=== PATIENT | male | born 1965 | race Caucasian/White ===

== ENCOUNTER → 2016-03-28 11:16 | Outpatient (CLI) | payer MEDICARE ==
[~2016-03-28 11:16] MED LIST: AMBIEN10 MG PO; LIORESAL 10 MG10 MG PO; LYRICA100 MG PO; LYRICA75 MG PO; PERCOCET 10/3251 TA1 PO; PRILOSEC20 MG PO; TRIPLE ANTIB28.35 GM TP
== END | disposition home or self-care (01) ==
LOC: D.MRI 11:16
DX: M50.80 Other cervical disc disorders, unspecified cervical region (principal)

== ENCOUNTER → 2016-05-18 14:30 | Outpatient (CLI) | payer MEDICARE | END | disposition home or self-care (01) | LOC: D.MRI 13:00 | DX: D49.7 Neoplasm of unspecified behavior of endocrine glands and other parts of nervous system (principal); M54.16 Radiculopathy, lumbar region ==

== ENCOUNTER 2016-06-02 17:56 | Emergency (ER) | payer MEDICARE ==
[2016-06-02 19:01] LABS: BASOPHILS 0.4 % (0.0-2.0); EOSINOPHILS 4.1 % (0-7); HEMATOCRIT 46.4 % (42.0-54.0); HEMOGLOBIN 15.5 g/dL (13.5-17.5); IMMATURE GRANULOCYTES 0.1 % (0-5); LYMPHOCYTES 23.1 % (15-50); MCH 31.4 pg (26.0-34.0); MCHC 33.4 g/dL (31.0-37.0); MCV 94.1 fL (80.0-100.0); MEAN PLATELET VOLUME 12.5 fL (7.4-10.4); MONOCYTES 13.1 % (2-11); NEUTROPHILS 59.2 % (40-80); PLATELET COUNT 154 10x3/uL (130-400); RBC 4.93 10x6/uL (4.20-6.10); RDW 13.8 % (11.5-14.5); WBC 7.3 10x3/uL (4.8-10.8)
[2016-06-02 19:27] LABS: ALBUMIN 3.8 g/dL (3.4-5.0); ALKALINE PHOSPHATASE 88 U/L (46-116); ALT (SGPT) 37 U/L (10-68); BILIRUBIN - TOTAL 0.51 mg/dL (0.2-1.3); CALC OSMOLALITY 278 mosm/kg (275-300); CALCIUM 9.3 mg/dL (8.5-10.1); CARBON DIOXIDE 23.2 mmol/L (21.0-32.0); CHLORIDE - SERUM 103 mmol/L (98-107); CREATININE - SERUM 1.2 mg/dL (0.6-1.3); GLUCOSE 100 mg/dL (74-106); POTASSIUM - SERUM 4.2 mmol/L (3.5-5.1); PROTEIN - SERUM 7.9 g/dL (6.4-8.2); SODIUM 138 mmol/L (136-145); UREA NITROGEN 20 mg/dL (7-18); eGFR NON AFRICAN AMERICAN 68 mL/min (90-120)
[2016-06-02 19:32] LABS: CKMB 3.2 U/L (0.0-3.6); CREATINE KINASE 865 UL (21-232); TROPONIN-I < 0.017 ng/mL (0.000-0.060)
== END 2016-06-02 21:30 | disposition home or self-care (01) ==
LOC: D.ER 17:56
PROVIDERS: Family Medicine
DX: J20.9 Acute bronchitis, unspecified (principal); J45.909 Unspecified asthma, uncomplicated; R50.9 Fever, unspecified; F17.200 Nicotine dependence, unspecified, uncomplicated; I10 Essential (primary) hypertension; Z86.73 Personal history of transient ischemic attack (TIA), and cerebral infarction without residual deficits

== ENCOUNTER 2016-12-09 19:03 | Inpatient (IN) | payer MEDICARE ==
--- NOTE | ~2016-12-09 | HEMODYNAMI ---
PATIENT:CONSTANCE AVITIA MEDICAL RECORD: [id number] : 65 LOCATION:[facility] D.2127 ADMISSION DATE: 12/11/16 Generatedon:12/12/20168:34 Patient name: CONSTANCE AVITIA Patient #: [id number] SSN: : 1965 Date of study: 12/12/2016 Page: Of Hemodynamic Procedure Report Patient Data Patient Demographics Procedure consent was obtained First Name: CONSTANCE Gender: Male Last Name: SADI : 1965 [facility] Initial: JESICA Age: 51 year(s) Patient #: [id number] Race: Unknown Additional ID: [id number] Contact details Address: [address] [place] [address] rd State: [place] City: [facility] Zip code: [address] Past Medical History Allergies Allergen Reaction Date Comments Reported Other allergy 12/12/2016 Sulfa and butterscotch lindsey Admission Admission Data Admission Date: 12/11/2016 Admission Time: 9:13 Room #: D.2127 Lab Results Lab Result Date: 12/12/2016 Lab Result Time: 0:00 Biochemistry Name Units Result Min Max BUN mg/dl 14 --(--*-)-- 7 18 Creatinine mg/dl 1.1 --(--*-)-- 0.6 1.3 CBC Name Units Result Min Max Hemoglobin g/dl 14.8 --(-*--)-- 13.5 17.5 Procedure Procedure Types Cath Procedure Diagnostic Procedure LHC LHC w/Coronaries Miscellaneous Procedures Procedure Description Procedure Date Procedure Date: 12/12/2016 Procedure Start Time: 8:15 Procedure End Time: 8:25 Procedure Staff Name Function Adeline Sosa RT Scrub Evie Hayes RN Nurse Dagoberto Dickson MD Performing Physician Angelia Dias RT Monitor Procedure Data Cath Procedure Fluoroscopy Diagnostic fluoroscopy Total fluoroscopy Time: 2.1 time: 2.1 min min Diagnostic fluoroscopy Total fluoroscopy dose: 471 dose: 471 mGy mGy Contrast Material Contrast Material Type Amount (ml) Isovue 300 56 Entry Location Entry Primary Successful Side Size Upsize Upsize Entry Closure Vincent ccessful Closure Location (Fr) 1 (Fr) 2 (Fr) Remarks Device Remarks Radial Right 6 Fr Mechanical artery Short Compression Estimated blood loss: 10 ml Diagnostic catheters Device Type Used For End Catheter Placement Terumo 5Fr Balbir 110cm Procedure catheter Procedure Complications No complications Procedure Medications Medication Administration Route Dosage Oxygen NC 2 l/min Lidocaine 2% added to field 20 Heparin Flush Bag added to field 2 bags (1000units/500ml NS) 0.9% NaCl I.V. 100 ml/hr Versed I.V. 1 mg Fentanyl I.V. 100 mcg Versed I.V. 1 mg Fentanyl I.V. 50 mcg Versed I.V. 1 mg Fentanyl I.V. 50 mcg Radial Cocktail I.A. 1 syringe (Verapomil 2mg/Nitro 400mcg/Heparin 1500units) Hemodynamics Rest HGB: 14.8 (g/dl) Heart Rate: 53 (bpm) Pressure Samples Time Site Value (mmHg) Purpose Heart Use Rate(bpm) 8:20 LV 127/-6,18 Snapshot 64 8:20 AO 104/72(86) Pullback 73 Gradients Valve Time Site Site 2 Mean SEP/DFP Peak To Heart Use 1 (mmHg) (sec/min) Peak Rate (mmHg) (bpm) Aortic 8:20 LV AO 15 17 73 104/72(86) Calculations Valve P-P Mean Valve Index Valve Source Name Gradient Area Flow (cm2) Aortic 15 15 Snapshots Pre Cath Intra NCS Post Cath Vital Signs Time Heart Resp SPO2 NIBP (mmHg) Rhythm Pain Status Sedation Rate (ipm) (%) Level (bpm) 8:05:33 52 25 98 130/89(98) SB 5 (11) , 10(A) Very distressing 8:09:47 54 16 95 129/79(90) SB 5 (11) , 10(A) Very distressing 8:13:59 52 16 94 133/86(98) SB 5 (11) , 10(A) Very distressing 8:18:13 55 17 93 137/84(95) SB 5 (11) , 10(A) Very distressing 8:22:31 59 22 95 108/66(80) SB 5 (11) , 10(A) Very distressing 8:27:24 59 12 95 126/75(106) SB 0 (11) , No 10(A) pain Medications Time Medication Route Dose Verified Delivered Reason Notes E ffectiveness by by 8:04:03 Oxygen NC 2 l/min Dagoberto Buffie used for Randolph Hayes RN procedure 8:04:09 Lidocaine 2% added 20ml Dagoberto Dagoberto for local to vial Randolph Dickson MD anesthetic field 8:04:15 Heparin Flush added 2 bags Dagoberto Dagoberto used for Bag to Randolph Dickson MD procedure (1000units/500ml field NS) 8:04:26 0.9% NaCl I.V. 100 Dagoberto Buffie Per ml/hr Randolph Hayes RN physician 8:13:31 Versed I.V. 1 mg Dagoberto Buffie for sedation Randolph Hayes RN 8:13:37 Fentanyl I.V. 100 mcg Dagoberto Buffie for sedation Randolph Hayes RN 8:16:08 Radial Cocktail I.A. 1 Dagoberto Dagoberto for (Verapomil syringe Randolph Dickson MD vasodilation 2mg/Nitro 400mcg/Hepari 8:17:11 Versed I.V. 1 mg Dagoberto Buffie for sedation Randolph Hayes RN 8:17:15 Fentanyl I.V. 50 mcg Dagoberto Buffie for sedation Randolph Hayes RN 8:22:27 Versed I.V. 1 mg Dagoberto Buffie for sedation Randolph Hayes RN 8:22:31 Fentanyl I.V. 50 mcg Dagoberto Buffie for sedation Randolph Hayes RN Procedure Log Time Note 7:40:27 Adeline Sosa RT(R) sent for patient. Start room use. 7:55:00 Procedure type changed to Cath procedure, Diagnostic procedure, LHC, LHC w/Coronaries, Miscellaneous Procedures 7:55:06 Diagnostic Cath Status : Elective 7:55:34 Time tracking: Regular hours 7:55:38 Plan of Care:Hemodynamics will remain stable., Cardiac rhythm will remain stable., Comfort level will be maintained., Respiratory function will remain adequate., Patient/ family verbilizes understanding of procedure., Procedure tolerated without complication., Recovers from procedure without complications.. 7:55:43 Patient received from Med II to [facility] 2 Alert and oriented. Tansferred to table in Supine position. 7:55:44 Correct patient and procedure confirmed by team. 7:55:44 Warm blankets applied, and fabi hugger turned on for patient comfort. 7:55:46 ECG and BP/O2 sat monitors applied to patient. 7:55:46 Signed procedure consent form obtained from patient. 8:04:03 Oxygen 2 l/min NC was administered by Evie Hayes RN; used for procedure; 8:04:09 Lidocaine 2% 20ml vial added to field was administered by Dagoberto Dickson MD; for local anesthetic; 8:04:15 Heparin Flush Bag (1000units/500ml NS) 2 bags added to field was administered by Dagoberto Dickson MD; used for procedure; 8:04:26 0.9% NaCl 100 ml/hr I.V. was administered by Evie Hayes RN; Per physician; 8:04:30 Vital chart was started 8:07:02 Rhythm: sinus rhythm 8:07:04 Full Disclosure recording started 8:07:07 Baseline sample Acquired. 8:07:14 H&P Date Dictated: 12/11/2016 Within 30 days and on chart.. 8:07:18 Family in patients room. 8:07:19 Patient NPO since Midnight. 8:07:43 Patient allergic to Other allergySulfa and butterscotch lindsey 8:07:46 Is the patient allergic to Iodine/contrast media? No. 8:07:48 Was the patient premedicated? Yes 8:07:49 Is patient on blood thinner?No 8:07:54 Patient diabetic? No. 8:07:59 Snore? Yes 8:08:00 Sleep apnea? Yes 8:08:08 Airway obstruction? Yes COPD 8:08:22 Dentures? Yes in tight 8:08:32 Patient pain scale 5/10 pressure. 8:08:40 IV patent on arrival in right forearm with 0.9% NaCl at O. 8:10:07 Lab results completed and on chart. 8:10:11 Right Radial & Right Groin area was prepped with chlora-prep and draped in sterile fashion 8:10:12 Sharps counted by scrub and verified by R.N. 8:10:12 Alarms reviewed by R. N. 8:10:13 Physician paged 8:10:14 Physician arrived 8:10:15 --------ALL STOP TIME OUT------ 8:10:16 Final Timeout: patient, procedure, and site verified with staff and physician. All members of the team are in agreement. 8:10:19 Right Radial & Right Groin site verified by team. 8:10:24 Sedation plan: IV Moderate Sedation Versed, Fentanyl 8:12:18 Lab Result : Hemoglobin 14.8 g/dl 8:12:18 Lab Result : Creatinine 1.1 mg/dl 8:12:18 Lab Result : BUN 14 mg/dl 8:13:31 Versed 1 mg I.V. was administered by Evie Hayes RN; for sedation; 8:13:37 Fentanyl 100 mcg I.V. was administered by Evie Hayes RN; for sedation; 8:15:07 Procedure started. 8:15:08 Use device set Radial Dx 8:15:09 Acist Syringe opened to sterile field. 8:15:10 Medline Cath Pack opened to sterile field. 8:15:11 St Faisal 260cm J .035 wire opened to sterile field. 8:15:11 Terumo 6Fr Slender Glidesheath opened to sterile field. 8:15:11 Bag Decanter opened to sterile field. 8:15:12 Acist Manifold opened to sterile field. 8:15:12 Acist Hand Control opened to sterile field. 8:15:13 MBrace Wrist Support opened to sterile field. 8:15:13 Tegaderm 4 x 4 opened to sterile field. 8:15:22 Local anesthetic to right radial artery with Lidocaine 2% by Dagoberto Dickson MD.INITIAL ACCESS ONLY 8:15:37 A 6 Fr Short sheath was inserted into the Right Radial artery 8:16:08 Radial Cocktail (Verapomil 2mg/Nitro 400mcg/Heparin 1500units) 1 syringe I.A. was administered by Dagoberto Dickson MD; for vasodilation; 8:16:56 Zero performed for pressure channel P1 8:17:11 Versed 1 mg I.V. was administered by Evie Hayes RN; for sedation; 8:17:15 Fentanyl 50 mcg I.V. was administered by Evie Hayes RN; for sedation; 8:19:11 A Terumo 5Fr Balbir 110cm catheter was advanced over the wire and used for Procedure. 8:19:43 LV angiography performed. 8:20:44 EF : 50 % 8:20:52 RCA angiography performed. 8:21:18 LCA angiography performed. 8:22:27 Versed 1 mg I.V. was administered by Evie Hayes RN; for sedation; 8:22:31 Fentanyl 50 mcg I.V. was administered by Evie Hayes RN; for sedation; 8:23:19 Catheter removed. 8:23:29 Terumo TR Band Standard opened to sterile field. 8:23:53 Sheath removed intact; hemostasis achieved with Mechanical Compression to the Right Radial artery. 8:23:56 Procedure ended.(Physican Out) 8:24:25 Fluoroscopy time 02.10 minutes. 8:24:31 Fluoroscopy dose: 471 mGy 8:24:31 Flurop Dose total: 471 8:24:35 Contrast amount:Isovue 300 56ml. 8:24:37 Sharps counted by scrub and verified by R.N. 8:24:39 TR band inflated with 10cc of air. 8:24:41 Insertion/operative site no bleeding no hematoma. 8:24:49 Post right radial artery:stable 8:24:51 Post Procedure Pulses reassessed and unchanged 8:25:12 Post procedure rhythm: unchanged. 8:25:15 Estimated blood loss: 10 ml 8:25:17 Post procedure instruction explained to patient.Patient verbalizes understanding. 8:25:32 Procedure Complication : No complications 8:25:36 Vital chart was stopped 8:25:38 See physician's report for complete and final results. 8:25:44 Report given to [facility]. 8:25:48 Patient transfered to [facility] with Bed. 8:25:50 Full Disclosure recording stopped 8:25:50 Procedure ended. 8:25:58 End room use (Document Last) Device Usage Item Name Manufacture Quantity Catalog Hospital Part Current Minimal Lot# / Number Charge Number Stock Stock Serial# Code Acist Acist 1 53490 275395 379463 045835 20 Syringe Medical Microstim Inc Medline Cardinal 1 [id number] 48993 938780 5 Cath Pack Health Bag Microtek 1 2001S 687818 62512 615695 5 [employer] Terumo 6Fr Terumo 1 [id number] 041696 575325 883135 [address] St Faisal 1 [id number] 553782 026337 113120 30 260cm J .035 wire Acist Hand Acist 1 68192 886212 763566 640980 5 Control Medical Systems Inc Acist Acist 1 76022 344469 089686 737224 5 Manifold Medical Systems Inc Tegaderm 4 3M 1 1626W 924339 918817 400640 5 x 4 MBrace Advanced 1 140-0250-00 278777 83538 343134 5 Wrist Vascular Support Dynamics Terumo 5Fr Terumo 1 84-1215 739569 143038 587552 5 Balbir 110cm catheter Terumo TR Terumo 1 [id number] 198858 606476 823163 40 Band Standard Signature Audit [place] Stage Time Signature Unsigned Intra-Procedure 12/12/2016 Adeline Sosa 8:34:01 AM RT(R) Signatures Monitor : Angelia Dias Signature : RT Date : Time : [facility] [address] [facility] [place] [address]
[2016-12-09 19:44] LABS: BASOPHILS 0.2 % (0-2); EOSINOPHILS 2.5 % (0-7); HEMATOCRIT 43.8 % (42.0-54.0); IMMATURE GRANULOCYTES 0.6 % (0-5); LYMPHOCYTES 31.5 % (15-50); MCH 32.4 pg (26.0-34.0); MCHC 34.2 g/dL (31.0-37.0); MCV 94.6 fL (80.0-100.0); MEAN PLATELET VOLUME 11.5 fL (7.4-10.4); MONOCYTES 7.7 % (2-11); NEUTROPHILS 57.5 % (40-80); PLATELET COUNT 143 10x3/uL (130-400); RBC 4.63 10x6/uL (4.20-6.10); RDW 13.8 % (11.5-14.5); WBC 9.5 10x3/uL (4.8-10.8)
[2016-12-09 19:56] LABS: ALBUMIN 3.3 g/dL (3.4-5.0); ALKALINE PHOSPHATASE 95 U/L (46-116); ALT (SGPT) 31 U/L (10-68); BILIRUBIN - TOTAL 0.26 mg/dL (0.2-1.3); CALC OSMOLALITY 275 mosm/kg (275-300); CALCIUM 8.6 mg/dL (8.5-10.1); CARBON DIOXIDE 25.7 mmol/L (21.0-32.0); CHLORIDE - SERUM 104 mmol/L (98-107); CREATININE - SERUM 1.2 mg/dL (0.6-1.3); GLUCOSE 87 mg/dL (74-106); POTASSIUM - SERUM 4.2 mmol/L (3.5-5.1); PROTEIN - SERUM 6.9 g/dL (6.4-8.2); SODIUM 138 mmol/L (136-145); UREA NITROGEN 16 mg/dL (7-18); eGFR NON AFRICAN AMERICAN 68 mL/min (90-120)
[2016-12-09 20:08] LABS: CHOL - HDL RATIO 4.4 ratio (2.3-4.9); CHOLESTEROL, TOTAL 200 mg/dL (0-200); CKMB 1.1 U/L (0.0-3.6); CREATINE KINASE 145 UL (21-232); HDL CHOLESTEROL 45 mg/dL (32-96); LDL CHOLESTEROL 140 mg/dL (0-100); LDL-HDL RATIO 3.1 ratio (1.5-3.5); TRIGLYCERIDE 77 mg/dL (30-200); TROPONIN-I < 0.017 ng/mL (0.000-0.060)
[2016-12-09] MEDS ORDERED: RESTORIL15 MG PO (23:31)
--- NOTE | 2016-12-09 23:35 | NUR ---
REC FROM ER VIA WC. ALERT AND ORIENTED X 4. AMBULATED WITH STEADY GAIT TO THE BED. DENIES CHEST PAIN. IV IN L FA 20G INTACT SL. HAS 02 AT 2L/NC. RR 20 EVEB U/L. NITRO PATCH ON L CHEST PLACED IN ER. REQUESTED A SANDWICH AND SODA. ORIENTED TO ROOM AND CALL LIGHT.
[2016-12-10 01:45] VITALS: BP 103/64; BMI 30.2
[2016-12-10 01:58] LABS: BASOPHILS 0.3 % (0-2); EOSINOPHILS 1.4 % (0-7); HEMATOCRIT 44.2 % (42.0-54.0); IMMATURE GRANULOCYTES 0.4 % (0-5); LYMPHOCYTES 15.7 % (15-50); MCH 32.3 pg (26.0-34.0); MCHC 33.9 g/dL (31.0-37.0); MCV 95.3 fL (80.0-100.0); MONOCYTES 3.8 % (2-11); NEUTROPHILS 78.4 % (40-80); PLATELET COUNT 130 10x3/uL (130-400); RBC 4.64 10x6/uL (4.20-6.10); RDW 13.8 % (11.5-14.5)
[2016-12-10 02:06] LABS: WBC 7.1 10x3/uL (4.8-10.8)
[2016-12-10 02:19] LABS: CALC OSMOLALITY 276 mosm/kg (275-300); CALCIUM 8.6 mg/dL (8.5-10.1); CARBON DIOXIDE 28.6 mmol/L (21.0-32.0); CHLORIDE - SERUM 104 mmol/L (98-107); CKMB 0.8 U/L (0.0-3.6); CREATINE KINASE 130 UL (21-232); CREATININE - SERUM 1.2 mg/dL (0.6-1.3); GLUCOSE 114 mg/dL (74-106); POTASSIUM - SERUM 4.5 mmol/L (3.5-5.1); SODIUM 137 mmol/L (136-145); TROPONIN-I < 0.017 ng/mL (0.000-0.060); UREA NITROGEN 17 mg/dL (7-18); eGFR NON AFRICAN AMERICAN 68 mL/min (90-120)
[2016-12-10] MEDS ORDERED: ALDACTONE50 MG PO (02:24)
[2016-12-10] MEDS ORDERED: METOPROLOL TART50 MG PO (02:25)
[2016-12-10] MEDS ORDERED: CELEXA20 MG PO (02:27)
[2016-12-10] MEDS ORDERED: LUNESTA2 M1 PO (02:28)
[2016-12-10] MEDS ORDERED: VISTARIL25 MG PO (02:29)
[2016-12-10] MEDS ORDERED: LYRICA200 MG PO (02:32)
[2016-12-10] MEDS ORDERED: TUDORZA PRESS400 MCG INH (02:34)
[2016-12-10] MEDS ORDERED: VENTOLIN HFA18 GM INH (02:36)
[2016-12-10] MEDS ORDERED: PROAIR HFA8.5 GM INH (02:37)
--- NOTE | 2016-12-10 03:26 | NUR ---
RESTING WITH EYES CLOSED, RR 18 EVEN U/L. NO S/S OF PAIN OR DISCOMFORT. CL IN REACH.
--- NOTE | 2016-12-10 05:20 | NUR ---
ADMIN MORPHINE 4MG IV PER REQUEST FOR C/O CHEST PAIN, DESCRIBED A "HOLLOW PAIN". NO OTHER NEEDS VOICED.
--- NOTE | 2016-12-10 07:45 | NUR ---
ASSESSMENT COMPLETED. TELEMERTY SHOWS SB AT 46. DENIES ANY PAIN AT PRESSENT TIME. O2 AT 2 L/M PER NC. SL TO LEFT FA. ALERT AND ORIENTED. UP AB RICARDO.WILL MONITOR
--- NOTE | 2016-12-10 08:00 | NUR ---
MEAL SERVED NAD NOTED PT DENIES ANY NEEDS OR DISCOMFORT AT THIS TIME
[2016-12-10 08:19] VITALS: BP 124/78
[2016-12-10 08:37] LABS: CKMB 0.7 U/L (0.0-3.6); CREATINE KINASE 117 UL (21-232); TROPONIN-I < 0.017 ng/mL (0.000-0.060)
--- NOTE | 2016-12-10 10:41 | NUR ---
LYING QUIETLY.NO C/O CHEST PAIN. AWAITING DOCTOR FOR ORDERS
--- NOTE | 2016-12-10 11:55 | NUR ---
PT GIVEN MORPHINE 4MG IV FOR C/O EPIGASTRIC PAIN.
[2016-12-10 12:00] VITALS: BP 127/73
--- NOTE | 2016-12-10 15:14 | NUR ---
HERE TO SEE PT. ORDERS RECIEVED
[2016-12-10 15:31] LABS: CKMB 0.7 U/L (0.0-3.6); CREATINE KINASE 94 UL (21-232); TROPONIN-I < 0.017 ng/mL (0.000-0.060)
[2016-12-10 15:58] VITALS: BP 112/67
--- NOTE | 2016-12-10 18:37 | NUR ---
LYING QUIETLY.FAMILY AT BED SIDE. WILL MONITOR
[2016-12-10 20:00] VITALS: BP 110/62
--- NOTE | 2016-12-10 20:01 | NUR ---
ALERT/AWAKE WATCHING TV. REQUESTED PAIN MEDICATION. IV IN L FA INTACT SL. TELEMETRY SHOWS 63 SR. HIS IS PRESENT IN ROOM. REQUESTED BLANKET/PILLOW.
--- NOTE | 2016-12-10 20:20 | NUR ---
ADMIN SCHED MEDS AND MORPHINE 4MG IV PER REQUEST FOR CHEST PAIN.
[2016-12-11] VITALS: BP 91/45
--- NOTE | 2016-12-11 01:00 | NUR ---
RESTING WITH EYES CLOSED. RR 18 EVEN U/L. NO S/S OF PAIN OR DISCOMFORT. HIS IS PRESENT IN ROOM.
[2016-12-11 04:00] VITALS: BP 93/49
[2016-12-11 07:00] LABS: BASOPHILS 0.1 % (0-2); EOSINOPHILS 0.6 % (0-7); HEMATOCRIT 42.6 % (42.0-54.0); HEMOGLOBIN 14.1 g/dL (13.5-17.5); IMMATURE GRANULOCYTES 0.3 % (0-5); LYMPHOCYTES 19.4 % (15-50); MCH 31.9 pg (26.0-34.0); MCHC 33.1 g/dL (31.0-37.0); MCV 96.4 fL (80.0-100.0); MEAN PLATELET VOLUME 12.5 fL (7.4-10.4); MONOCYTES 6.3 % (2-11); NEUTROPHILS 73.3 % (40-80); PLATELET COUNT 138 10x3/uL (130-400); RBC 4.42 10x6/uL (4.20-6.10)
[2016-12-11 07:01] LABS: WBC 14.4 10x3/uL (4.8-10.8)
[2016-12-11 07:08] LABS: CALC OSMOLALITY 286 mosm/kg (275-300); CALCIUM 8.2 mg/dL (8.5-10.1); CARBON DIOXIDE 25.3 mmol/L (21.0-32.0); CHLORIDE - SERUM 110 mmol/L (98-107); GLUCOSE 98 mg/dL (74-106); POTASSIUM - SERUM 3.9 mmol/L (3.5-5.1); SODIUM 143 mmol/L (136-145); UREA NITROGEN 19 mg/dL (7-18); eGFR NON AFRICAN AMERICAN 84 mL/min (90-120)
[2016-12-11 07:58] VITALS: BP 103/66
--- NOTE | 2016-12-11 08:22 | NUR ---
RESTING QUIETLY DENIES ANY NEEDS AT THIS TIME PT NPO FOR ULTRASOUND OF GALLBLADDER
--- NOTE | 2016-12-11 08:28 | NUR ---
ASSESSMENT COMPLETED. TELEMERTY SHOWS SB 52. LEFT FA SL, PATENT. UP AB RICARDO. NPO FOR ABD US. SR UP WITH CALL LIGHT IN REACH
[2016-12-11 11:14] VITALS: BP 124/85
[2016-12-11 16:18] VITALS: BP 102/57
--- NOTE | 2016-12-11 18:11 | NUR ---
NO CHANGES. LYING QUIETLY WITH EYES CLOSED , WILL MONITOR
[2016-12-11 20:00] VITALS: BP 110/71
--- NOTE | 2016-12-11 20:10 | NUR ---
PT LYING IN BED, AWAKE, ALERT, ORIENTED, STATES HE IS HAVING CHEST PAIN THAT IS MIDSTERNAL, ALONG WITH PRESSURE AND RADIATES INTO HIS LEFT JAW. PT DENIES ANY OTHER NEEDS. DURING THE ADMINISTRATION OF PRN MORPHINE, PTS IV TO LEFT FOREARM INFILTRATED, LEAVING REDNESS AND EDEMA TO INSERTION SITE. PT C/O BURNING. IV REMOVED WITH CATH TIP INTACT. WILL RESITE. CONTINUE TO MONITOR CLOSELY. BED LOW, CALL LIGHT IN REACH, SIDE RAILS X 2, HOB 30 DEGREES.
--- NOTE | 2016-12-11 23:09 | NUR ---
PT AWAKE, ALERT, MILDLY SLURRED SPEECH AND SLOW TO ANSWER. I ASKED PT ABOUT THE ORDER FOR NITRO PASTE AND WHY HE HAS BEEN REFUSING IT. PT STATES HE HASN'T BEEN REFUSING IT, BUT THAT IT DROPPED HIS B/P TO LOW LAST NIGHT, THEREFORE HE DOES NOT WANT IT. I ASKED PT IF IT HELPED WITH HIS CHEST PAIN. PT STATED THAT THE NITRO PATCH PLACED IN THE ER DID HELP WITH HIS CHEST PAIN, HOWEVER THE PASTE DID NOT. PT DENIES ANY NEEDS AT THIS TIME. WILL CONTINUE TO MONITOR CLOSELY. BED LOW, CALL LIGHT IN REACH, SIDE RAILS X 2, HOB 30 DEGREES.
[2016-12-12] VITALS: BP 106/62
[2016-12-12 04:00] VITALS: BP 103/74
[2016-12-12 05:12] LABS: BASOPHILS 0.2 % (0-2); EOSINOPHILS 1.6 % (0-7); HEMATOCRIT 44.9 % (42.0-54.0); HEMOGLOBIN 14.8 g/dL (13.5-17.5); IMMATURE GRANULOCYTES 0.4 % (0-5); LYMPHOCYTES 34.5 % (15-50); MCH 32.1 pg (26.0-34.0); MCV 97.4 fL (80.0-100.0); MEAN PLATELET VOLUME 12.3 fL (7.4-10.4); MONOCYTES 7.2 % (2-11); NEUTROPHILS 56.1 % (40-80); PLATELET COUNT 131 10x3/uL (130-400); RBC 4.61 10x6/uL (4.20-6.10); RDW 14.3 % (11.5-14.5)
[2016-12-12 05:21] LABS: CALC OSMOLALITY 281 mosm/kg (275-300); CALCIUM 8.3 mg/dL (8.5-10.1); CARBON DIOXIDE 27.9 mmol/L (21.0-32.0); CHLORIDE - SERUM 106 mmol/L (98-107); CREATININE - SERUM 1.1 mg/dL (0.6-1.3); GLUCOSE 93 mg/dL (74-106); POTASSIUM - SERUM 4.4 mmol/L (3.5-5.1); SODIUM 141 mmol/L (136-145); eGFR NON AFRICAN AMERICAN 75 mL/min (90-120)
[2016-12-12 05:24] LABS: UREA NITROGEN 14 mg/dL (7-18)
--- NOTE | 2016-12-12 06:23 | NUR ---
IV RESITED TO RIGHT FOREARM BY ROXANN CRISTINA. PT RESTING COMFORTABLY. CONTINUE TO MONITOR CLOSELY.
--- NOTE | 2016-12-12 07:45 | NUR ---
LEAVING FOR MATH AND SCIENCES DEPARTMENT CHAIR BY BED. WILL CONT. PLAN OF CARE.
--- NOTE | 2016-12-12 07:45 | NUR ---
ASSESSMENT DONE. DENIES NEEDS.
--- NOTE | 2016-12-12 07:49 | NUR ---
TO CERTIFIED NOVELL ADMINISTRATOR PER BED
[2016-12-12 08:00] VITALS: BP 132/68
--- NOTE | 2016-12-12 09:05 | NUR ---
RETURN FROM [employer]IRY FEED SALES CONSULTANT PER BED. TR-BAND TO RT WRIST.
[2016-12-12 12:00] VITALS: BP 109/69
[2016-12-12] MEDS ORDERED: NICODERM C1 PATCH .1 TRANSDERM (13:24)
--- NOTE | 2016-12-12 14:16 | NUR ---
DC GIVEN TO PT
--- NOTE | 2016-12-12 14:18 | NUR ---
DC HOME PER PERSONAL CAR
--- NOTE | 2016-12-12 17:27 | NUR ---
Patient Name: CONSTANCE AVITIA Admission Status: ER Accout number: [id number] Admission Date: 12-11-2016 : 1965 Admission Diagnosis: Attending: TAMMI DOUGLAS Current LOS: 1 Anticipated DC Date: 12-12-2016 Planned Disposition: Home Primary Insurance: MEDICARE A & B Discharge Planning Comments: * Is the patient Alert and Oriented? Yes 0 * How many steps to enter\exit or inside your home? NONE 0 * PCP DR. DAVENPORT 0 * Pharmacy [facility] 0 * Preadmission Environment Home with Family 0 * ADLs Independent 0 * Equipment None 0 * Other Equipment NO MEDICAL EQUIPMENT PROVIDER PREFERENCE 0 * List name and contact numbers for known caregivers / representatives who currently or will assist patient after discharge: ALIX AVITIA, SPOUSE, 0 * Community resources currently utilized None 0 * Please name any agencies selected above. NONE 0 * Additional services required to return to the preadmission environment? No 0 * Can the patient safely return to the preadmission environment? Yes 0 * Has this patient been hospitalized within the prior 30 days at any hospital? No 0 CM MET WITH PT IN ROOM TO DISCUSS DISCHARGE PLANNING AND NEEDS. PT INDICATED BY WAIVING OF HAND TO SPEAK TO HIS SPOUSE. PT'S SPOUSE REPORTS PT LIVING AT HOME INDEPENDENTLY WITH HER. PT HAS NO MEDICAL EQUIPMENT AND NO OUTSIDE SERVICES ASSISTING IN THE HOME. CM DISCUSSED AVAILABILITY OF HOME HEALTH, REHAB SERVICES AND MEDICAL EQUIPMENT. PT'S SPOUSE DENIES DISCHARGE NEEDS, REPORTS SHE WILL PICK PT UP FOR DISCHARGE HOME TODAY. IMPORTANT MESSAGE FROM MEDICARE PROVIDED AND EXPLAINED. Tractor Driver: Arias Ward
== END 2016-12-12 14:19 | disposition home or self-care (01) | DRG 287 ==
LOC: D.ER 19:03 → D.M2 22:45 → OBSVTIME 22:45 → D.M2 12-11 09:13
PROVIDERS: Family Medicine; Internal Medicine Cardiovascular Disease; ADMIT Family Medicine
PROC: B2151ZZ Fluoroscopy of Left Heart using Low Osmolar Contrast (ICD-10-PCS; 2016-12-12)
PROC: 4A023N7 Measurement of Cardiac Sampling and Pressure, Left Heart, Percutaneous Approach (ICD-10-PCS; 2016-12-12)
PROC: B2111ZZ Fluoroscopy of Multiple Coronary Arteries using Low Osmolar Contrast (ICD-10-PCS; principal; 2016-12-12 07:00)
DX: R07.89 Other chest pain (principal); F17.203 Nicotine dependence unspecified, with withdrawal; I10 Essential (primary) hypertension; J44.9 Chronic obstructive pulmonary disease, unspecified; K80.20 Calculus of gallbladder without cholecystitis without obstruction; K21.9 Gastro-esophageal reflux disease without esophagitis; E78.5 Hyperlipidemia, unspecified; Z86.73 Personal history of transient ischemic attack (TIA), and cerebral infarction without residual deficits

== ENCOUNTER → 2017-05-18 13:25 | Outpatient (CLI) | payer MEDICARE ==
[~2017-05-18 13:25] MED LIST changes: +ALDACTONE50 MG PO; +CELEXA20 MG PO; +LUNESTA2 M1 PO; +LYRICA200 MG PO; +METOPROLOL TART50 MG PO; +NICODERM C1 PATCH .1 TRANSDERM; +PROAIR HFA8.5 GM INH; +RESTORIL15 MG PO; +TUDORZA PRESS400 MCG INH; +VENTOLIN HFA18 GM INH; +VISTARIL25 MG PO
== END | disposition home or self-care (01) ==
LOC: D.CT 13:25
DX: R10.84 Generalized abdominal pain (principal)

== ENCOUNTER → 2017-06-16 13:32 | Outpatient (CLI) | payer MEDICARE | END | disposition home or self-care (01) | LOC: D.MRI 13:32 | DX: M54.16 Radiculopathy, lumbar region (principal) ==

== ENCOUNTER 2017-07-22 14:47 | Emergency (ER) | payer MEDICARE ==
[2017-07-22 16:49] LABS: BASOPHILS 0.4 % (0-2); EOSINOPHILS 3.2 % (0-7); HEMATOCRIT 45.8 % (42.0-54.0); HEMOGLOBIN 15.5 g/dL (13.5-17.5); IMMATURE GRANULOCYTES 0.1 % (0-5); MCH 31.1 pg (26.0-34.0); MCHC 33.8 g/dL (31.0-37.0); MEAN PLATELET VOLUME 12.4 fL (7.4-10.4); MONOCYTES 8.5 % (2-11); NEUTROPHILS 63.8 % (40-80); PLATELET COUNT 132 10x3/uL (130-400); RBC 4.98 10x6/uL (4.20-6.10); RDW 13.3 % (11.5-14.5); WBC 8.1 10x3/uL (4.8-10.8)
[2017-07-22 17:02] LABS: ALBUMIN 3.4 g/dL (3.4-5.0); ALKALINE PHOSPHATASE 84 U/L (46-116); ALT (SGPT) 25 U/L (10-68); BILIRUBIN - TOTAL 0.55 mg/dL (0.2-1.3); CALC OSMOLALITY 276 mosm/kg (275-300); CALCIUM 9.1 mg/dL (8.5-10.1); CARBON DIOXIDE 21.6 mmol/L (21.0-32.0); CHLORIDE - SERUM 104 mmol/L (98-107); GLUCOSE 91 mg/dL (74-106); POTASSIUM - SERUM 4.2 mmol/L (3.5-5.1); PROTEIN - SERUM 6.9 g/dL (6.4-8.2); SODIUM 139 mmol/L (136-145); UREA NITROGEN 11 mg/dL (7-18); eGFR NON AFRICAN AMERICAN 83 mL/min (90-120)
== END 2017-07-22 17:57 | disposition home or self-care (01) ==
LOC: D.ER 14:47
PROVIDERS: Emergency Medicine
DX: J20.9 Acute bronchitis, unspecified (principal); R55 Syncope and collapse; Z86.73 Personal history of transient ischemic attack (TIA), and cerebral infarction without residual deficits; I10 Essential (primary) hypertension; F17.200 Nicotine dependence, unspecified, uncomplicated

== ENCOUNTER → 2017-08-18 11:30 | Outpatient (CLI) | payer MEDICARE | END | disposition home or self-care (01) | LOC: D.MRI 11:30 | DX: S43.421A Sprain of right rotator cuff capsule, initial encounter (principal); X58.XXXA Exposure to other specified factors, initial encounter ==

== ENCOUNTER 2018-05-02 17:19 | Inpatient (IN) | payer MEDICARE ==
[~2018-05-02] VITALS: Ht 180.3 cm; Wt 95.9 kg
[2018-05-02 18:19] LABS: BASOPHILS 0.2 % (0-2); EOSINOPHILS 1.1 % (0-7); HEMATOCRIT 44.4 % (42.0-54.0); HEMOGLOBIN 15.2 g/dL (13.5-17.5); IMMATURE GRANULOCYTES 0.3 % (0-5); MCH 30.8 pg (26.0-34.0); MCHC 34.2 g/dL (31.0-37.0); MCV 89.9 fL (80.0-100.0); MEAN PLATELET VOLUME 11.9 fL (7.4-10.4); MONOCYTES 7.4 % (2-11); PLATELET COUNT 153 10x3/uL (130-400); RBC 4.94 10x6/uL (4.20-6.10); RDW 13.6 % (11.5-14.5); WBC 6.5 10x3/uL (4.8-10.8)
[2018-05-02 18:23] VITALS: BP 117/83; BMI 29.5
[2018-05-02 19:13] LABS: ALKALINE PHOSPHATASE 74 U/L (46-116); ALT (SGPT) 32 U/L (10-68); CALC OSMOLALITY 277 mosm/kg (275-300); CALCIUM 8.8 mg/dL (8.5-10.1); CHLORIDE - SERUM 103 mmol/L (98-107); CREATININE - SERUM 0.9 mg/dL (0.6-1.3); GLUCOSE 106 mg/dL (74-106); POTASSIUM - SERUM 4.2 mmol/L (3.5-5.1); PROTEIN - SERUM 7.6 g/dL (6.4-8.2); SODIUM 140 mmol/L (136-145); UREA NITROGEN 9 mg/dL (7-18); eGFR NON AFRICAN AMERICAN > 90 mL/min (90-120)
[2018-05-02 22:32] VITALS: BP 99/54
[2018-05-03 02:33] VITALS: BP 112/70
[2018-05-03 05:43] VITALS: BP 120/76
[2018-05-03 06:49] LABS: BASOPHILS 0.2 % (0-2); EOSINOPHILS 2.1 % (0-7); HEMATOCRIT 38.5 % (42.0-54.0); IMMATURE GRANULOCYTES 0.3 % (0-5); LYMPHOCYTES 33.6 % (15-50); MCH 30.2 pg (26.0-34.0); MCHC 33.8 g/dL (31.0-37.0); MCV 89.5 fL (80.0-100.0); MEAN PLATELET VOLUME 11.9 fL (7.4-10.4); MONOCYTES 9.2 % (2-11); NEUTROPHILS 54.6 % (40-80); PLATELET COUNT 156 10x3/uL (130-400); RDW 13.6 % (11.5-14.5); WBC 6.3 10x3/uL (4.8-10.8)
[2018-05-03 06:58] LABS: ALBUMIN 2.4 g/dL (3.4-5.0); ALKALINE PHOSPHATASE 54 U/L (46-116); ALT (SGPT) 28 U/L (10-68); BILIRUBIN - TOTAL 0.44 mg/dL (0.2-1.3); CALC OSMOLALITY 280 mosm/kg (275-300); CARBON DIOXIDE 24.6 mmol/L (21.0-32.0); CHLORIDE - SERUM 108 mmol/L (98-107); CREATININE - SERUM 0.9 mg/dL (0.6-1.3); GLUCOSE 92 mg/dL (74-106); POTASSIUM - SERUM 4.1 mmol/L (3.5-5.1); PROTEIN - SERUM 6.1 g/dL (6.4-8.2); SODIUM 142 mmol/L (136-145); UREA NITROGEN 8 mg/dL (7-18); eGFR NON AFRICAN AMERICAN > 90 mL/min (90-120)
[2018-05-03 07:42] VITALS: Ht 180.3 cm; Wt 95.9 kg
[2018-05-03 10:07] LABS: APPEARANCE CLEAR (CLEAR); COLOR YELLOW (YELLOW)
[2018-05-03 10:08] LABS: BILIRUBIN NEGATIVE (NEGATIVE); GLUCOSE NEGATIVE (NEGATIVE); KETONE NEGATIVE (NEGATIVE); NITRITE NEGATIVE (NEGATIVE); PROTEIN NEGATIVE (NEGATIVE); UROBILINOGEN NORMAL (NORMAL)
[2018-05-03 10:11] VITALS: BP 163/69
[2018-05-03 10:13] LABS: UDS - AMPHET NEGATIVE QUAL (NEGATIVE); UDS - BARB NEGATIVE QUAL (NEGATIVE); UDS - BENZO NEGATIVE QUAL (NEGATIVE); UDS - COCAINE NEGATIVE QUAL (NEGATIVE); UDS - OPIATE NEGATIVE QUAL (NEGATIVE); UDS - PCP NEGATIVE QUAL (NEGATIVE); UDS - THC NEGATIVE QUAL (NEGATIVE)
== END 2018-05-03 18:00 | disposition left against medical advice (07) | DRG 193 ==
LOC: D.SDCHOLD 17:19 → D.M3 17:19
PROVIDERS: Internal Medicine Nephrology; ADMIT Family Medicine
DX: J18.9 Pneumonia, unspecified organism (principal); J96.21 Acute and chronic respiratory failure with hypoxia; J44.1 Chronic obstructive pulmonary disease with (acute) exacerbation; J44.0 Chronic obstructive pulmonary disease with (acute) lower respiratory infection; F17.213 Nicotine dependence, cigarettes, with withdrawal; D64.9 Anemia, unspecified; K21.9 Gastro-esophageal reflux disease without esophagitis; F32.9 Major depressive disorder, single episode, unspecified; F41.9 Anxiety disorder, unspecified; Z86.73 Personal history of transient ischemic attack (TIA), and cerebral infarction without residual deficits

== ENCOUNTER 2019-02-01 11:53 | Emergency (ER) | payer MEDICARE ==
[~2019-02-01] VITALS: Ht 180.3 cm; Wt 101.4 kg
[2019-02-01 11:55] VITALS: Ht 180.3 cm; Wt 101.4 kg
[2019-02-01] MEDS ORDERED: BELSOMRA20 MG PO (11:58)
[2019-02-01] MEDS ORDERED: BACLOFEN20 M1 PO (11:59)
[2019-02-01] MEDS ORDERED: HYDROCODON-ACE1 EA10 PO (11:59)
[2019-02-01] MEDS ORDERED: TRINTELLIX5 MG PO (12:00)
[2019-02-01] MEDS ORDERED: KLONOPIN1 MG PO (12:01)
[2019-02-01] MEDS ORDERED: TOPROL XL50 MG PO (12:01)
[2019-02-01] MEDS ORDERED: METOPROLOL TART50 MG PO (12:02)
[2019-02-01] MEDS ORDERED: ANORO ELLIPTA1 EACH INH (12:02)
[2019-02-01] MEDS ORDERED: LYRICA200 MG PO (12:02)
[2019-02-01 12:21] LABS: APPEARANCE CLEAR (CLEAR); BILIRUBIN NEGATIVE (NEGATIVE); COLOR YELLOW (YELLOW); GLUCOSE NEGATIVE (NEGATIVE); KETONE NEGATIVE (NEGATIVE); NITRITE NEGATIVE (NEGATIVE); PROTEIN NEGATIVE (NEGATIVE); SPECIFIC GRAVITY 1.025 (1.005-1.020); UROBILINOGEN NORMAL (NORMAL)
[2019-02-01 12:44] LABS: BASOPHILS 0.6 % (0-2); EOSINOPHILS 6.1 % (0-7); HEMOGLOBIN 14.8 g/dL (13.5-17.5); IMMATURE GRANULOCYTES 0.3 % (0-5); LYMPHOCYTES 31.4 % (15-50); MCH 31.1 pg (26.0-34.0); MCHC 32.9 g/dL (31.0-37.0); MCV 94.5 fL (80.0-100.0); MEAN PLATELET VOLUME 11.7 fL (7.4-10.4); MONOCYTES 9.2 % (2-11); NEUTROPHILS 52.4 % (40-80); PLATELET COUNT 180 10x3/uL (130-400); RBC 4.76 10x6/uL (4.20-6.10); RDW 13.4 % (11.5-14.5); WBC 6.7 10x3/uL (4.8-10.8)
[2019-02-01 12:53] LABS: APTT 30.6 SECONDS (22.8-39.4); INR 1.03 (0.85-1.17)
[2019-02-01 12:54] LABS: UDS - AMPHET POSITIVE QUAL (NEGATIVE); UDS - BARB NEGATIVE QUAL (NEGATIVE); UDS - BENZO NEGATIVE QUAL (NEGATIVE); UDS - COCAINE NEGATIVE QUAL (NEGATIVE); UDS - OPIATE NEGATIVE QUAL (NEGATIVE); UDS - PCP NEGATIVE QUAL (NEGATIVE); UDS - THC POSITIVE QUAL (NEGATIVE)
[2019-02-01 12:56] LABS: CALC OSMOLALITY 278 mosm/kg (275-300); CALCIUM 8.7 mg/dL (8.5-10.1); CARBON DIOXIDE 25.2 mmol/L (21.0-32.0); CHLORIDE - SERUM 106 mmol/L (98-107); CREATININE - SERUM 1.1 mg/dL (0.6-1.3); GLUCOSE 103 mg/dL (74-106); POTASSIUM - SERUM 3.9 mmol/L (3.5-5.1); SODIUM 140 mmol/L (136-145); UREA NITROGEN 12 mg/dL (7-18); eGFR NON AFRICAN AMERICAN 74 mL/min (90-120)
[2019-02-01 13:08] LABS: ALBUMIN 3.2 g/dL (3.4-5.0); ALKALINE PHOSPHATASE 93 U/L (46-116); ALT (SGPT) 40 U/L (10-68); AMYLASE - SERUM 55 U/L (25-115); BILIRUBIN - TOTAL 0.56 mg/dL (0.2-1.3); CKMB 2.8 U/L (0.0-3.6); CREATINE KINASE 1721 UL (21-232); LIPASE 276 U/L (73-393); MAGNESIUM - SERUM 2.3 mg/dL (1.8-2.4); TROPONIN-I < 0.017 ng/mL (0.000-0.060)
--- NOTE | 2019-02-01 13:28 | NUR ---
According to the Suicide Assessment the patient does not require 1:1 assessment. Provided him with the suicide resources.
[2019-02-01 15:21] VITALS: BP 146/69
== END 2019-02-01 15:22 | disposition home or self-care (01) ==
LOC: D.ER 11:53
PROVIDERS: Family Medicine
DX: T43.625A Adverse effect of amphetamines, initial encounter (principal); T43.623A Poisoning by amphetamines, assault, initial encounter; Y92.9 Unspecified place or not applicable; Z86.73 Personal history of transient ischemic attack (TIA), and cerebral infarction without residual deficits; I10 Essential (primary) hypertension; Z72.0 Tobacco use; J44.9 Chronic obstructive pulmonary disease, unspecified; B19.10 Unspecified viral hepatitis B without hepatic coma

== ENCOUNTER 2019-09-10 20:03 | Emergency (ER) | payer MEDICARE ==
[~2019-09-10] VITALS: Ht 180.3 cm; Wt 95.5 kg
[~2019-09-10 20:03] MED LIST changes: +ANORO ELLIPTA1 EACH INH; +BACLOFEN20 M1 PO; +BELSOMRA20 MG PO; +HYDROCODON-ACE1 EA10 PO; +KLONOPIN1 MG PO; +TOPROL XL50 MG PO; +TRINTELLIX5 MG PO
[2019-09-10 20:23] VITALS: Ht 180.3 cm; Wt 95.5 kg
[2019-09-10 20:50] LABS: BASOPHILS 0.3 % (0-2); EOSINOPHILS 2.8 % (0-7); HEMATOCRIT 47.6 % (42.0-54.0); HEMOGLOBIN 16.2 g/dL (13.5-17.5); IMMATURE GRANULOCYTES 0.1 % (0-5); LYMPHOCYTES 24.5 % (15-50); MCH 31.7 pg (26.0-34.0); MCV 93.2 fL (80.0-100.0); MEAN PLATELET VOLUME 11.3 fL (7.4-10.4); MONOCYTES 8.6 % (2-11); NEUTROPHILS 63.7 % (40-80); PLATELET COUNT 179 10x3/uL (130-400); RBC 5.11 10x6/uL (4.20-6.10); RDW 13.1 % (11.5-14.5); WBC 7.5 10x3/uL (4.8-10.8)
[2019-09-10 20:54] LABS: BILIRUBIN NEGATIVE (NEGATIVE); GLUCOSE NEGATIVE (NEGATIVE); KETONE NEGATIVE (NEGATIVE); NITRITE NEGATIVE (NEGATIVE); UROBILINOGEN NORMAL (NORMAL)
[2019-09-10 21:12] LABS: CALC OSMOLALITY 271 mosm/kg (275-300); CALCIUM 8.8 mg/dL (8.5-10.1); CARBON DIOXIDE 25.5 mmol/L (21.0-32.0); CHLORIDE - SERUM 102 mmol/L (98-107); GLUCOSE 110 mg/dL (74-106); SODIUM 136 mmol/L (136-145); UREA NITROGEN 11 mg/dL (7-18); eGFR NON AFRICAN AMERICAN 83 mL/min (90-120)
[2019-09-10 21:22] LABS: ALBUMIN 3.8 g/dL (3.4-5.0); ALKALINE PHOSPHATASE 97 U/L (30-120); ALT (SGPT) 30 U/L (10-68); AMYLASE - SERUM 50 U/L (25-115); BILIRUBIN - TOTAL 0.56 mg/dL (0.2-1.3); LIPASE 163 U/L (73-393); PROTEIN - SERUM 7.6 g/dL (6.4-8.2)
[2019-09-10 21:36] LABS: TROPONIN-I < 0.017 ng/mL (0.000-0.060)
[2019-09-10] MEDS ORDERED: NAPROSYN500 MG PO (23:41)
[2019-09-11 00:14] VITALS: BP 141/90
== END 2019-09-10 23:48 | disposition home or self-care (01) ==
LOC: D.ER 20:03
PROVIDERS: Family Medicine
DX: R10.31 Right lower quadrant pain (principal); Z86.73 Personal history of transient ischemic attack (TIA), and cerebral infarction without residual deficits; I10 Essential (primary) hypertension; J44.9 Chronic obstructive pulmonary disease, unspecified; Z72.0 Tobacco use

== ENCOUNTER → 2020-07-02 05:49 | Day surgery (SDC) | payer MEDICARE ==
[2020-01-29 02:30] VITALS: Ht 180.3 cm; Wt 90.7 kg
[~2020-07-02] VITALS: Ht 180.3 cm; Wt 90.7 kg
[~2020-07-02 05:49] MED LIST changes: +HALDOL DECAN50 MG/ML IM; +MINIPRESS1 MG PO; +MUCINEX DM ER1 EAC1 PO; +NAPROSYN500 MG PO; +TESSALON PERLE100 MG PO; +TRINTELLIX20 MG PO
[2020-07-02 06:22] LABS: BASOPHILS 0.7 % (0-2); CALC OSMOLALITY 279 mosm/kg (275-300); CALCIUM 8.7 mg/dL (8.5-10.1); CARBON DIOXIDE 24.5 mmol/L (21.0-32.0); CHLORIDE - SERUM 107 mmol/L (98-107); EOSINOPHILS 5.6 % (0-7); GLUCOSE 92 mg/dL (74-106); HEMATOCRIT 45.9 % (42.0-54.0); IMMATURE GRANULOCYTES 0.3 % (0-5); LYMPHOCYTE ABS# 2.67 10x3/uL (1.32-3.57); LYMPHOCYTES 46.5 % (15-50); MCH 30.8 pg (26.0-34.0); MCHC 32.7 g/dL (31.0-37.0); MCV 94.3 fL (80.0-100.0); MEAN PLATELET VOLUME 11.8 fL (7.4-10.4); MONOCYTES 8.4 % (2-11); NEUTROPHIL ABS# 2.21 10x3/uL (1.78-5.38); NEUTROPHILS 38.5 % (40-80); PLATELET COUNT 172 10x3/uL (130-400); POTASSIUM - SERUM 4.3 mmol/L (3.5-5.1); RBC 4.87 10x6/uL (4.20-6.10); RDW 13.3 % (11.5-14.5); SODIUM 140 mmol/L (136-145); UREA NITROGEN 14 mg/dL (7-18); WBC 5.7 10x3/uL (4.8-10.8); eGFR NON AFRICAN AMERICAN 82 mL/min (90-120)
--- NOTE | 2020-07-02 08:27 | NUR ---
0655 WENT IN TO PREPARE PATIENT FOR SURGERY, UPON QUESTIONING PATIENT REGARDING SUICIDE SCREEN, PATIENT BECAME HOSTILE, CURSING STAFF. WHEN ATTEMPTED TO CALM PATIENT, PATIENT BECAME MORE HOSTILE AND ELECTED TO LEAVE. FRIEND AT BEDSIDE
== END | disposition home or self-care (01) ==
LOC: D.OPS 05:49
PROVIDERS: Anesthesiology; ATTEND Neurological Surgery
DX: G95.9 Disease of spinal cord, unspecified (principal); G95.20 Unspecified cord compression; Z53.20 Procedure and treatment not carried out because of patient's decision for unspecified reasons

== ENCOUNTER 2020-08-11 14:01 | Emergency (ER) | payer MEDICARE ==
[~2020-08-11] VITALS: Ht 180.3 cm; Wt 97.7 kg
[2020-08-11 14:21] VITALS: BP 122/79; Ht 180.3 cm; Wt 97.7 kg
[2020-08-11 14:55] LABS: BASOPHILS 0.7 % (0-2); EOSINOPHILS 6.1 % (0-7); LYMPHOCYTES 30.5 % (15-50); MCH 30.9 pg (26.0-34.0); MCHC 33.3 g/dL (31.0-37.0); MCV 92.7 fL (80.0-100.0); NEUTROPHILS 53.7 % (40-80); PLATELET COUNT 167 10x3/uL (130-400); RBC 4.85 10x6/uL (4.20-6.10); RDW 14.3 % (11.5-14.5); WBC 7.6 10x3/uL (4.8-10.8)
[2020-08-11 14:59] LABS: BILIRUBIN NEGATIVE (NEGATIVE); KETONE NEGATIVE (NEGATIVE); NITRITE NEGATIVE (NEGATIVE); UROBILINOGEN NORMAL mg/dL (< 2)
[2020-08-11 15:18] LABS: CALC OSMOLALITY 279 mosm/kg (275-300); CALCIUM 8.7 mg/dL (8.5-10.1); CARBON DIOXIDE 25.6 mmol/L (21.0-32.0); CHLORIDE - SERUM 105 mmol/L (98-107); GLUCOSE 100 mg/dL (74-106); POTASSIUM - SERUM 4.8 mmol/L (3.5-5.1); SODIUM 140 mmol/L (136-145); UREA NITROGEN 15 mg/dL (7-18); eGFR NON AFRICAN AMERICAN 82 mL/min (90-120)
[2020-08-11 15:24] LABS: ALBUMIN 3.5 g/dL (3.4-5.0); ALKALINE PHOSPHATASE 128 U/L (30-120); ALT (SGPT) 25 U/L (10-68); BILIRUBIN - TOTAL 0.28 mg/dL (0.2-1.3)
== END 2020-08-11 15:47 | disposition home or self-care (01) ==
LOC: D.ER 14:01
PROVIDERS: Family Medicine
DX: R10.12 Left upper quadrant pain (principal); R11.0 Nausea; I10 Essential (primary) hypertension; Z86.73 Personal history of transient ischemic attack (TIA), and cerebral infarction without residual deficits; J44.9 Chronic obstructive pulmonary disease, unspecified; Z72.0 Tobacco use

== ENCOUNTER 2020-09-04 05:15 | Day surgery (SDC) | payer MEDICARE ==
[~2020-09-04] VITALS: Ht 180.3 cm; Wt 100.0 kg
[2020-09-04] VITALS (10 sets, daily range): BP systolic 117–154; BP diastolic 79–90; Ht 180.3 cm; Wt 100.0 kg
[2020-09-04 06:35] LABS: BASOPHILS 0.6 % (0-2); EOSINOPHILS 5.1 % (0-7); HEMATOCRIT 43.4 % (42.0-54.0); HEMOGLOBIN 14.8 g/dL (13.5-17.5); LYMPHOCYTES 32.9 % (15-50); MCH 31.3 pg (26.0-34.0); MCV 92.1 fL (80.0-100.0); MONOCYTES 8.4 % (2-11); PLATELET COUNT 171 10x3/uL (130-400); RBC 4.72 10x6/uL (4.20-6.10); RDW 13.4 % (11.5-14.5); WBC 7.4 10x3/uL (4.8-10.8)
[2020-09-04 06:39] LABS: CALC OSMOLALITY 281 mosm/kg (275-300); CALCIUM 8.8 mg/dL (8.5-10.1); CARBON DIOXIDE 27.3 mmol/L (21.0-32.0); CHLORIDE - SERUM 106 mmol/L (98-107); GLUCOSE 94 mg/dL (74-106); POTASSIUM - SERUM 4.3 mmol/L (3.5-5.1); SODIUM 141 mmol/L (136-145); UREA NITROGEN 14 mg/dL (7-18); eGFR NON AFRICAN AMERICAN 82 mL/min (90-120)
--- NOTE | 2020-09-04 10:24 | NUR ---
TO UNIT VIA BED FROM RECOVERY ROOM. VITAL SIGNS STABLE. WILL AROUSE TO VOICE. AT BEDISDE. BED LOW POSITION, CALL LIGHT IN REACH. PATIENT WANTED SOFT CERVICAL COLLAR ON NOW. FREE FROM SIGNS OF DISTRESS. WILL CONTINUE TO MONITOR.
--- NOTE | 2020-09-04 18:41 | NUR ---
PATIENT LEFT AMA. REMOVED IV CATH, CATH TIP INTACT. PAPER SIGNED. ADITI CROWE CRNA NOTIFIED. SHIRT MAKER NOTIFIED.
--- NOTE | 2020-09-08 18:59 | OP ---
PATIENT NAME: CONSTANCE AVITIA MEDICAL RECORD: [id number] :[birth year] LOCATION:D[facility] ADMISSION DATE: SURGEON: ALFONSO HERNÁNDEZ MD DATE OF OPERATION: 09/04/2020 DATE OF SERVICE: 09/04/2020 PREOPERATIVE DIAGNOSES: Cervical myelopathy and disk herniation at C4-C5. POSTOPERATIVE DIAGNOSES: Cervical myelopathy and disk herniation at C4-C5. PROCEDURE: Anterior cervical discectomy and fusion at C4-C5 with PEEK interbody cage and a separate anterior cervical plate and screws from [employer], Audra bone allograft. DESCRIPTION OF PROCEDURE: After induction of general endotracheal anesthesia, the patient was positioned supine on the operating table. Neck was prepped and draped in the usual sterile fashion. Fluoroscopic x-ray and freer localized the C4-C5 interspace. After infiltration of 1:100,000 epinephrine with 1% lidocaine, a transverse skin incision was carried out from the midline to the sternocleidomastoid muscle. The platysma was divided with sharp dissection. Using Metzenbaum scissors, I proceeded in an avascular plane medial to the carotid sheath. The C4-C5 interspace was identified with fluoroscopic x-ray and spinal needle. The longus colli muscles were elevated from the bodies of C4 and C5. Self-retaining retractor was placed deep to the longus colli muscles. The [place]ton pins were placed by the C4 and C5. Disk space was incised with a #11 blade. Series of curettes and pituitary rongeurs were used to remove the cartilaginous endplates. The posterior longitudinal ligament was removed with Cloward rongeurs. Osteophytes were drilled away posteriorly with Midas Pierce drill. Following this, the posterior longitudinal ligament was removed with Cloward rongeurs. The dura was decompressed as well. Meticulous hemostasis was maintained throughout the wound. The wound was irrigated with copious amounts of Ancef irrigant solution. PEEK interbody cage was placed in the disk space under distraction. This was filled with Audra bone allograft with bone stem cells. A 16 mm Mtime anterior cervical plate and screws were used to span C4-C5 interspace, 18 mm screws were placed through the holes in the plate. Locking cams were tightened down over the screw heads. Good position of the hardware was confirmed with fluoroscopic x-ray. Meticulous hemostasis was maintained throughout the wound. Wound was irrigated with copious amounts of Ancef irrigant solution. The platysma and subdermal layer closed with interrupted 4-0 Vicryl suture. The skin was reapproximated with Steri-Strips and benzoin. A sterile dressing was applied to the wound. The patient was awakened in good condition and taken to recovery. All counts were reported as correct. Estimated blood loss was minimal. TRANSINT:[id number] Voice Confirmation ID: [id number] DOCUMENT ID: [id number] OPERATIVE REPORT [id number] CONSTANCE AVITIA JOHN MD at 1859 CC: [id number] DICTATION DATE: 09/04/20 0944 AGENCY RECRUITER: 09/04/[address] [facility] 09/04/[address] [address]
== END 2020-09-04 18:43 | disposition home or self-care (01) ==
LOC: D.OPS 05:15 → D.MS 09:28 → D.OPS 18:43
PROVIDERS: Anesthesiology; ATTEND Neurological Surgery
DX: M50.021 Cervical disc disorder at C4-C5 level with myelopathy (principal); G95.9 Disease of spinal cord, unspecified; F43.10 Post-traumatic stress disorder, unspecified; G95.20 Unspecified cord compression